=== PATIENT | female | born 1985 | race Caucasian/White ===

== ENCOUNTER 2020-06-24 19:16 | Emergency (ER) | payer MEDICARE ==
[~2020-06-24] VITALS: Ht 165.1 cm; Wt 145.5 kg
[~2020-06-24 19:16] MED LIST: CYMBALTA20 MG PO; HYDROCODON-ACE1 EAC7 PO; LEVOTHYROXINE200 MCG PO; [UNRECOGNIZED DRUG - CODE]
[2020-06-24 19:20] VITALS: Ht 165.1 cm; Wt 145.5 kg
[2020-06-24 20:21] VITALS: BP 115/63
== END 2020-06-24 20:14 | disposition home or self-care (01) ==
LOC: D.ER 19:16
DX: M25.562 Pain in left knee (principal)

== ENCOUNTER → 2020-06-29 06:07 | Day surgery (SDC) | payer MEDICARE ==
[~2020-06-29] VITALS: Ht 165.1 cm; Wt 147.4 kg
[~2020-06-29 06:07] MED LIST changes: +BACTRIM DS TAB1 EAC1 PO; +TYLENOL W/CODEI1 TAB PO
[2020-06-29 06:51] LABS: BASOPHILS 0.2 % (0-2); EOSINOPHILS 1.5 % (0-7); HEMATOCRIT 43.5 % (36.0-48.0); IMMATURE GRANULOCYTES 0.2 % (0-5); LYMPHOCYTES 35.2 % (15-50); MCH 31.3 pg (26.0-34.0); MCHC 34.5 g/dL (31.0-37.0); MCV 90.6 fL (80.0-100.0); MEAN PLATELET VOLUME 9.3 fL (7.4-10.4); MONOCYTES 8.1 % (2-11); NEUTROPHIL ABS# 4.97 10x3/uL (1.56-6.13); NEUTROPHILS 54.8 % (40-80); PLATELET COUNT 239 10x3/uL (130-400); RDW 12.6 % (11.5-14.5); WBC 9.1 10x3/uL (4.8-10.8)
[2020-06-29 07:48] LABS: INR 1.04 (0.85-1.17); PROTIME 12.6 SECONDS (11.6-15.0)
[2020-06-29 07:55] LABS: APTT 33.7 SECONDS (22.8-39.4)
[2020-06-29 08:21] LABS: HCG SERUM NEGATIVE (NEGATIVE)
[2020-06-29 08:24] VITALS: BP 140/90; Ht 165.1 cm; Wt 147.4 kg
--- NOTE | 2020-06-29 10:38 | NUR ---
STAT ALBUTEROL UPDRAFT INITIATED UPON ARRIVA PER ANESTHESIA
--- NOTE | 2020-06-29 13:01 | NUR ---
1235 TAKEN OUT VIA W/C TO CAR WITH BROTHER IN LAW. ADVISED TO CALL OR COME BACK IF ANY PROBLEMS.
== END | disposition home or self-care (01) ==
LOC: D.OPS 06:07
PROVIDERS: Anesthesiology; ATTEND Surgery
DX: K43.2 Incisional hernia without obstruction or gangrene (principal); E66.01 Morbid (severe) obesity due to excess calories; F17.200 Nicotine dependence, unspecified, uncomplicated